=== PATIENT | male | born 1990 | race Caucasian/White ===

== ENCOUNTER 2019-03-05 09:17 | Day surgery (SDC) | payer BC, MEDICAID ==
[~2019-03-05] VITALS: Ht 190.5 cm; Wt 86.4 kg
[2019-03-05] MEDS ORDERED: MIDAZolam 5mg/5ml vial ONE (09:29)
[2019-03-05] MEDS ORDERED: LIDOcaine Viscous 15ml cup ONE (09:29)
[2019-03-05] MEDS ORDERED: fentaNYL/PF 50MCG/1 ML 2ML syringe ONE (09:29)
[2019-03-05 09:30] VITALS: BP 120/85
[2019-03-05] MEDS ORDERED: FAMO20TA47 PO (09:38)
[2019-03-05 10:51] VITALS: BP 120/85
[2019-03-05 11:01] VITALS: BP 123/74
[2019-03-05 11:11] VITALS: BP 126/65
== END 2019-03-05 11:22 | disposition home or self-care (01) ==
LOC: GI LAB 09:17
PROVIDERS: ATTEND Internal Medicine Gastroenterology
DX: R10.13 Epigastric pain (principal); K44.9 Diaphragmatic hernia without obstruction or gangrene; K31.4 Gastric diverticulum; K21.0 Gastro-esophageal reflux disease with esophagitis; K22.70 Barrett's esophagus without dysplasia; K29.60 Other gastritis without bleeding
CPT/HCPCS: 43239; J2250; J3010; J7040; 99152; A4620